=== PATIENT | female | born 1935 | race Caucasian/White ===

== ENCOUNTER 2017-06-12 00:52 | Emergency (ER) | payer OTHER ==
[~2017-06-12] VITALS: Ht 167.6 cm; Wt 89.9 kg
[~2017-06-12 00:52] MED LIST: FERR324T PO; LISI20TA3 PO; MULT-506 PO; WARF1TAB PO; [UNRECOGNIZED DRUG - REMARK] PO; [UNRECOGNIZED DRUG - REMARK] PO
[2017-06-12 01:00] VITALS: TEMP 36.7; O2SAT 98; Ht 167.6 cm; Wt 89.9 kg
[2017-06-12] MEDS ORDERED: ONDANSETRON INJ 2 MG/ML 2 ML VIAL IV STA (01:16)
[2017-06-12] MEDS ORDERED: FAMOTIDINE 20MG/5ML IV PUSH IV STA (01:16)
[2017-06-12] MEDS ORDERED: SODIUM CHLORIDE 0.9% 500ML 500 ML IV STA (01:16)
[2017-06-12] MEDS ORDERED: ONDANSETRON INJ 2 MG/ML 2 ML VIAL ONE (01:19)
[2017-06-12 01:30] LABS: BASO % 0.2 %; BASO ABS # 0.03 K/uL (0-0.2); EOS ABS # 0.16 K/uL (0-0.5); HEMATOCRIT 43.5 % (37-47); HEMOGLOBIN 15.3 g/dL (12.0-16.0); IG# 0.04 K/uL (0.00-0.02); LYMPH % 10.1 %; MEAN CORPUSCULAR HEMOGLOBIN 33.8 pg (25-34); MEAN CORPUSCULAR HGB CONC 35.2 g/dl (32-36); MEAN PLATELET VOLUME 9.9 fL (7.4-10.4); MONO % 7.9 %; MONO ABS # 1.25 K/uL (0.11-0.59); NEUT % 80.5 %; NEUT ABS # 12.83 K/uL (1.4-6.5); PLATELET COUNT 316 K/uL (130-400); RED CELL DISTRIBUTION WIDTH CV 12.7 % (11.5-14.5); RED CELL DISTRIBUTION WIDTH SD 44.2 fL (36.4-46.3); WHITE BLOOD COUNT 15.91 K/uL (4.8-10.8)
[2017-06-12] MEDS ORDERED: OPTIRAY 320 IV PRN (01:30)
[2017-06-12] MEDS ORDERED: DICYCLOMINE HCL 10 MG/ML 2 ML AMP IM ONE (01:30)
[2017-06-12 01:46] LABS: ALBUMIN 3.8 gm/dl (3.4-5.0); ALKALINE PHOSPHATASE 97 U/L (45-117); ALT/SGPT 25 U/L (12-78); BLOOD UREA NITROGEN 20 mg/dl (7-18); CARBON DIOXIDE 27 mmol/L (21-32); GLUCOSE 141 mg/dl (70-99); LIPASE 172 U/L (73-393); POTASSIUM 3.8 mmol/L (3.5-5.1); SODIUM 141 mmol/L (136-145); TOTAL PROTEIN 8.3 gm/dl (6.4-8.2)
[2017-06-12 01:50] LABS: AST/SGOT 15 U/L (15-37)
[2017-06-12] MEDS ORDERED: DVN80 PO (01:51)
[2017-06-12] MEDS ORDERED: ONDANSETRON HOME PACK 4MG OD TAB PO ONE (03:45)
[2017-06-12] MEDS ORDERED: BENTYL HOME PACK 10 MG VIAL PO ONE (03:45)
--- NOTE | 2017-06-12 04:07 | EMERGENCY ROOM VISIT NOTE ---
ED Visit Note First contact with patient: 01:09 Patient seen and examined at bedside after discussion with the PA. Discussed all results. Discussed plan of care. Patient verbalized understanding was agreeable with plan.
[2017-06-12 04:09] VITALS: BP 132/76; O2SAT 93
[2017-06-12 04:17] VITALS: PULSE 88
--- NOTE | 2017-06-12 06:39 | EMERGENCY ROOM VISIT NOTE ---
History First contact with patient: 01:09 Chief Complaint: ABDOMINAL PAIN Stated Complaint: ABDOMINAL PAIN Nursing Triage Summary: Patient reports that she was out to dinner, felt fine, then on her way home she started to have some gas pressure or abdominal pressure. Patient took tums at home with no relief, experiencing nausea but has not vomited yet. Eleanor reports that she feels full and bloated. History of Present Illness The patient is a 81 year old female who presents to the Emergency Room with complaints of nausea and vomiting with abdominal cramping for the past few hours. Nothing makes the pain better or worse. Pain currently 5 out of 10 throughout the abdomen. It does not radiate. Patient states she wants to eat and her had the same thing. He is not sick. Patient denies chest pain , dyspnea, fever, chills, cough, congestion, back pain, urinary symptoms. Review of Systems See HPI for pertinent positives & negatives. A total of 10 systems reviewed and were otherwise negative. Past Medical/Surgical History Cholecystectomy, hypertension Social History Smoking Status: Never Smoker Smokeless Tobacco Use: No Alcohol Use: occasionally Drug Use: none Marital Status: Housing Status: lives with family Current/Historical Medications Scheduled Multivitamin (Multivitamin), 1 TAB PO DAILY Valsartan (Diovan), 80 MG PO DAILY Physical Exam Vital Signs Date Time Temp Pulse Resp B/P (MAP) Pulse Ox O2 Delivery O2 Flow Rate FiO2 06/12/17 04:17 88 06/12/17 04:09 89 19 132/76 93 Room Air 06/12/17 03:05 91 17 96 06/12/17 03:00 139/68 06/12/17 02:35 90 23 96 06/12/17 02:05 83 20 97 06/12/17 02:00 152/84 06/12/17 01:52 80 19 98 06/12/17 01:36 148/71 06/12/17 01:22 96 14 90 06/12/17 01:00 98 Room Air 06/12/17 01:00 84 06/12/17 01:00 36.7 87 18 175/90 96 Room Air 06/12/17 01:00 161/90 06/12/17 00:53 175/90 Physical Exam VITALS: Vitals are noted on the nurse's note and reviewed by myself. Vital signs stable. GENERAL: Pleasant female actively vomiting, in no acute distress, nondiaphoretic , well-developed well-nourished. SKIN: The skin was without rashes, erythema, edema, or bruising. There is no tenting of the skin. Capillary reflex less than 2 seconds. HEAD: Normocephalic atraumatic. EARS: External auditory canals clear, tympanic membranes pearly denise without erythema or effusion bilaterally. EYES: Pupils equal round and reactive to light and accommodation. Conjunctivae without injection, sclerae without icterus. Extraocular movements intact. NOSE: Patent, turbinates without inflammation or discharge. MOUTH: Mucous membranes mild dry. Pharynx without erythema or exudate. Uvula midline. Airway patent. Tongue does not deviate. NECK: Supple without nuchal rigidity. No lymphadenopathy. No thyromegaly. Cervical spine is nontender. No JVD. HEART: Regular rate and rhythm LUNGS: Clear to auscultation bilaterally without wheezes, rales or rhonchi. No dullness to percussion. No retractions or accessory muscle use. ABDOMEN: Positive bowel sounds x 4. Normal tympanic percussion. Soft, diffusely tender to palpation without localized pain, no CVA tenderness, without masses or organomegaly. Bernal sign negative. No guarding or rebound tenderness. MUSCULOSKELETAL: No muscle atrophy, erythema, or edema noted. NEURO: Patient was alert and oriented to person place and time. Normal sensation to light and sharp touch. No focal neurological deficits. Medical Decision & Procedures Laboratory Results 06/12/17 00:55 Red Blood Count 4.53, Mean Corpuscular Volume 96.0, Mean Corpuscular Hemoglobin 33.8, Mean Corpuscular Hemoglobin Concent 35.2, Mean Platelet Volume 9.9, Neutrophils (%) (Auto) 80.5, Lymphocytes (%) (Auto) 10.1, Monocytes (%) (Auto) 7.9, Eosinophils (%) (Auto) 1.0, Basophils (%) (Auto) 0.2, Neutrophils # (Auto) 12.83, Lymphocytes # (Auto) 1.60, Monocytes # (Auto) 1.25, Eosinophils # (Auto) 0.16, Basophils # (Auto) 0.03 06/12/17 00:55 Test 06/12/17 00:55 White Blood Count 15.91 K/uL (4.8-10.8) Red Blood Count 4.53 M/uL (4.2-5.4) Hemoglobin 15.3 g/dL (12.0-16.0) Hematocrit 43.5 % (37-47) Mean Corpuscular Volume 96.0 fL (80-100) Mean Corpuscular Hemoglobin 33.8 pg (25-34) Mean Corpuscular Hemoglobin Concent 35.2 g/dl (32-36) Platelet Count 316 K/uL (130-400) Mean Platelet Volume 9.9 fL (7.4-10.4) Neutrophils (%) (Auto) 80.5 % Lymphocytes (%) (Auto) 10.1 % Monocytes (%) (Auto) 7.9 % Eosinophils (%) (Auto) 1.0 % Basophils (%) (Auto) 0.2 % Neutrophils # (Auto) 12.83 K/uL (1.4-6.5) Lymphocytes # (Auto) 1.60 K/uL (1.2-3.4) Monocytes # (Auto) 1.25 K/uL (0.11-0.59) Eosinophils # (Auto) 0.16 K/uL (0-0.5) Basophils # (Auto) 0.03 K/uL (0-0.2) RDW Standard Deviation 44.2 fL (36.4-46.3) RDW Coefficient of Variation 12.7 % (11.5-14.5) Immature Granulocyte % (Auto) 0.3 % Immature Granulocyte # (Auto) 0.04 K/uL (0.00-0.02) Anion Gap 9.0 mmol/L (3-11) Estimated GFR () 70.5 Estimated GFR (Non- 60.8 BUN/Creatinine Ratio 22.8 (10-20) Calcium Level 9.0 mg/dl (8.5-10.1) Total Bilirubin 0.4 mg/dl (0.2-1) Direct Bilirubin < 0.1 mg/dl (0-0.2) Aspartate Amino Transf (AST/SGOT) 15 U/L (15-37) Alanine Aminotransferase (ALT/SGPT) 25 U/L (12-78) Alkaline Phosphatase 97 U/L (45-117) Troponin I < 0.015 ng/ml (0-0.045) Total Protein 8.3 gm/dl (6.4-8.2) Albumin 3.8 gm/dl (3.4-5.0) Lipase 172 U/L (73-393) Medications Administered Medications (Trade) Dose Ordered Sig/Kyra Route Start Time Stop Time Status Last Admin Dose Admin Dicyclomine HCl (Bentyl Inj) 20 mg NOW ONCE IM 06/12/17 01:30 06/12/17 01:31 DC 06/12/17 01:33 20 MG Ondansetron HCl (Zofran Inj) 4 mg NOW STAT IV 06/12/17 01:16 06/12/17 01:21 DC 06/12/17 01:20 4 MG Sodium Chloride 500 ml @ 999 mls/hr Q31M STAT IV 06/12/17 01:16 06/12/17 01:46 DC 06/12/17 01:20 999 MLS/HR Famotidine (Pepcid 20mg Iv Push) 20 mg ONE STAT IV 06/12/17 01:16 06/12/17 01:22 DC 06/12/17 01:33 20 MG ED Course Prior records/ancillary studies reviewed. Triage Nursing notes reviewed. Additional history obtained from the family. The patient's history was concerning for nausea, vomiting, and abdominal pain. Differential diagnosis: Etiologies such as gastroenteritis, food borne illness, infections, appendicitis , diverticulitis, inflammatory bowel disease, obstruction, GI bleed, biliary pathology, as well as others were entertained. Physical examination findings: As above. Abdominal examination revealed diffuse tenderness without localized pain. Vital signs reviewed and revealed stable. ER treatment provided: IV hydration 1 L NSS. Zofran, Bentyl, IV fluids On reassessment the patient felt better. Patient was tolerating p.o. intake. Diagnostics interpretation by me: EKG: Normal sinus, normal intervals, no acute ST-T wave changes. Impression normal sinus rhythm interpreted by myself The labs revealed leukocytosis, most likely marginalization from vomiting negative troponin Imaging studies: CT ABDOMEN & PELVIS With Contrast: Several fluid-filled nondilated loops of small bowel, which is nonspecific but can be seen with enteritis in the appropriate clinical setting. No evidence of bowel obstruction. No free air. Appendix is not seen. No right lower quadrant inflammatory changes to suggest appendicitis. Colonic diverticulosis without evidence of diverticulitis. Gallbladder is surgically absent. Small uterine fibroid. Small hiatal hernia. Radiologist: Hilton Terrazas MD This appears to be consistent with nausea and vomiting and abdominal pain most likely from gastroenteritis. Patient felt much better to be medicated as above. She did not have acute abdomen on exam. She is tolerating fluids. She is advised to do clear liquid diet today and progress as tolerated to bland diet tomorrow. She is advised follow-up family care in a few days or here in the ER sooner for high fevers, lethargy, vomiting, pain, worsening signs or symptoms or as needed.. By the evaluation outlined above emergent etiologies such as appendicitis, diverticulitis, obstruction, cardiac sources, mesenteric ischemia, aortic pathology, inflammatory bowel disease, renal colic, PUD, biliary pathology, UTI, as well as others were deemed relatively unlikely. The pt informed about the findings as listed above. All questions were answered and pleased with the treatment. Return instructions were outlined and the patient was discharged in stable condition. Outpatient prescription management: Zofran Case reviewed with my attending The chart was completed utilizing [employer] Speech voice recognition software. Grammatical errors, random word insertions, pronoun errors, and incomplete sentences are an occassional consequence of this system due to software limitations, ambient noise, and hardware issues. Any formal questions or concerns about the content, text, or information contained within the body of this dictation should be directly addressed to the physician bilingual office assistant for clarification. Referral: The patient was referred to their primary care physician for follow-up in 2 to 3 days for a recheck of the current condition. Medical Decision As above Medication Reconcilliation Current Medication List: was personally reviewed by me Blood Pressure Screening Patient's blood pressure: Normal blood pressure Impression Primary Impression: Acute gastroenteritis Departure Information Dispostion Home / Self-Care Condition GOOD Referrals Alma Christy PA-C (PCP) Forms Call Back Authorization, HOME CARE DOCUMENTATION FORM, IMPORTANT VISIT INFORMATION Patient Instructions My [facility], ED Gastroenteritis Viral Additional Instructions DO NOT drive, drink alcohol, operate machinery, or perform dangerous activities today. You were given medications in the ER that can affect your ability to safely function or operate a vehicle. Zofran(odansetron) tablets 4mg: Take one and allow it to dissolve in your mouth every four to six hours as needed for nausea or vomiting. Bentyl 10 m tablet every 6-8 hours as needed for abdominal cramping. Rest and drink plenty of fluids as tolerated. Slow sips of water or sports drinks are recommended instead of large amounts all at once. Continue current medications. Once your stomach is settled start with a clear liquid diet (jello, soup broth, etc.) and then advance as tolerated. You should avoid full, heavy meals for about 24 hrs from the time your symptoms resolved. Return to the ER for persistent vomiting, fevers, abdominal pain, chest pains, difficulty breathing, black or bloody stools, worsening of your condition, or as needed. Follow up with your primary physician in 2-3 days for a recheck of your current condition.
--- NOTE | 2017-06-12 09:02 | DIAGNOSTIC IMAGING REPORT ---
CT SCAN OF THE ABDOMEN AND PELVIS WITH IV CONTRAST CLINICAL HISTORY: Generalized abdominal pain. COMPARISON STUDY: Abdominal CT dated 05/24/2009. TECHNIQUE: Following the IV administration of 94 cc of Optiray 320, CT scan of the abdomen and pelvis is performed from the lung bases to the proximal femora. Images are reviewed in the axial, sagittal, and coronal planes. IV contrast was administered without complication. A dose lowering technique was utilized adhering to the principles of ALARA. CT DOSE: 647.09 mGy.cm FINDINGS: Lung bases: The heart is normal in size and without pericardial effusion. There are scattered coronary artery calcifications. Dependent atelectasis and chronic change is noted at the lung bases. No airspace consolidation or pleural effusion is identified. There is a small hiatal hernia. Liver: The contrast-enhanced liver is normal in size, contour, and attenuation. There is no intrahepatic biliary ductal dilatation. The hepatic veins and portal veins are patent. Gallbladder: Surgically absent noting clips in the gallbladder fossa. Spleen: Normal in size and attenuation. Pancreas: Unremarkable. Adrenal glands: Unremarkable. Kidneys: The contrast enhanced kidneys are normal in size and without hydronephrosis. The kidneys enhance symmetrically. Abdominal vasculature: The abdominal aorta is normal in course and caliber noting moderate to advanced atherosclerotic calcification. Bowel: There is moderate colonic diverticulosis without CT evidence of acute diverticulitis. No bowel obstruction is seen. Prominent loops of small bowel are noted. Mild full-thickness suggested. This is nonspecific but may represent a mild enteritis. The appendix is not visualized. Peritoneum: There is no intraperitoneal free air or abdominal ascites. There is a small fat-containing umbilical hernia. Lymphadenopathy: None. Pelvic viscera: The bladder is normal as visualized. The endometrium appears thickened for age, measuring up to 11 mm. Uterine fibroids are observed. A 2.5 cm simple cystic structure is present in the right adnexa seen on image #335, likely related the right ovary. There is a tiny fat-containing right inguinal hernia. Skeletal structures: The skeletal structures are osteopenic. There is mild lumbosacral spondylosis. No lytic or blastic lesions are seen. IMPRESSION: 1. Question a mild nonspecific enteritis of the small bowel. Clinical correlation will be required. 2. Moderate colonic diverticulosis without CT evidence of acute diverticulitis. 3. The endometrium appears thickened for age measuring up to 11 mm. Follow-up with a pelvic ultrasound is recommended for further assessment. 4. Fibroid uterus. 5. A simple appearing cystic structure in the right adnexa is likely related to the right ovary and of low suspicion. This can also be assessed with pelvic ultrasound. 6. Additional findings as above. Electronically signed by: Kiom Bear M.D. 06/12/2017 9:01 AM Dictated Date/Time: 06/12/2017 8:54 AM
== END 2017-06-12 04:39 | disposition home or self-care (01) ==
LOC: C.EDB 00:52 → EDBD 00:52 → C.EDB 04:39
DX: K52.9 Noninfective gastroenteritis and colitis, unspecified (principal); I10 Essential (primary) hypertension; Z90.49 Acquired absence of other specified parts of digestive tract; Z79.899 Other long term (current) drug therapy

== ENCOUNTER → 2017-06-23 | Outpatient (CLI) | payer OTHER ==
[~2017-06-23] MED LIST changes: +DVN80 PO; -FERR324T PO; -LISI20TA3 PO; -WARF1TAB PO; -[UNRECOGNIZED DRUG - REMARK] PO; -[UNRECOGNIZED DRUG - REMARK] PO
== END | disposition home or self-care (01) ==
LOC: C.PATHSPEC 16:52
PROVIDERS: ATTEND Dentist Endodontics
DX: K04.8 Radicular cyst (principal)